=== PATIENT | female | born 1960 | race Two or more races ===

== ENCOUNTER 2025-02-25 11:03 | Emergency (ER) | payer OTHER ==
[~2025-02-25] VITALS: Ht 154.9 cm; Wt 71.7 kg
[2025-02-25] MEDS ORDERED: ONDANSETRON HCL 2 MG/ML VIAL IV STA (11:21)
[2025-02-25] MEDS ORDERED: MECLIZINE HCL 25 MG TABLET PO STA (11:21)
[2025-02-25] MEDS ORDERED: FAMOTIDINE/PF 20 MG/2 ML VIAL IV PUSH STA (11:21)
[2025-02-25] MEDS ORDERED: RINGERS SOLUTION,LACTATED 1,000 ML IV STA (11:22)
[2025-02-25] MEDS ORDERED: MECLIZINE HCL 25 MG TABLET PO ONE (11:24)
[2025-02-25] MEDS ORDERED: ONDANSETRON HCL 2 MG/ML VIAL ONE (11:24)
[2025-02-25] MEDS ORDERED: FAMOTIDINE/PF 20 MG/2 ML VIAL ONE (11:24)
[2025-02-25 12:34] LABS: BASO % 0.6 % (0.1-1.2); EOS # 0.15 (0.04-0.54); EOS % 1.8 % (0.7-7.0); LYMPH # 1.38 (1.18-3.74); LYMPH % 16.6 % (19.3-53.1); MEAN PLATELET VOLUME 9.80 fl (9.4-12.4); MONO # 0.30 (0.24-0.82); MONO % 3.6 % (4.7-12.5); NEUT # 6.38 (1.56-6.13); NEUT % 77.0 % (34.0-71.1); RED CELL DISTRIBUTION WIDTH 13.1 % (11.6-14.4)
[2025-02-25 13:57] LABS: ALT/SGPT 32.0 U/L (12-78); AST/SGOT 21.0 U/L (15-37); BILIRUBIN TOTAL 0.49 mg/dL (0.3-1.2); BUN CREA RATIO 21.0 (7.0-25.0); CREATININE SERUM 0.71 mg/dL (0.55-1.02); GFR 82.36; GLOBULINA 3.2 G/DL (2.4-3.5); GLUCOSE FASTING 103.0 mg/dL (65-100); OSMOLALITY SERUM 290.0 MOSM/KG (275-295)
== END 2025-02-25 23:43 | disposition home or self-care (01) ==
LOC: ER 11:03 → EDBD 11:32 → ER 23:43
PROVIDERS: General Practice
DX: R42 Dizziness and giddiness (principal)